=== PATIENT | female | born 1975 | race Caucasian/White ===

== ENCOUNTER 2019-01-20 15:01 | Emergency (ER) | payer OTHER ==
[~2019-01-20] VITALS: Ht 160 cm; Wt 80.0 kg
[~2019-01-20 15:01] MED LIST: ONDA4TAB8 PO
[2019-01-20 15:06] VITALS: Ht 160 cm; Wt 80.0 kg
[2019-01-20] MEDS ORDERED: ONDANSETRON (ODT) 4 MG TAB ODT STA (16:06)
[2019-01-20] MEDS ORDERED: MECLIZINE 12.5 MG TAB PO ONE (16:30)
[2019-01-20 17:17] VITALS: BP 120/68; PULSE 68; RESP 20
== END 2019-01-20 17:19 | disposition home or self-care (01) ==
LOC: FTE 15:01
DX: R11.2 Nausea with vomiting, unspecified (principal); R51 Headache; R42 Dizziness and giddiness; R82.998 Other abnormal findings in urine; F17.210 Nicotine dependence, cigarettes, uncomplicated
CPT/HCPCS: 36415; 80053; 80307; 81003; 81025; 83690; 85025; Z7502; Z7610; 99283